=== PATIENT | female | born 1975 | race Caucasian/White ===

== ENCOUNTER 2024-02-15 15:34 | Observation (INO) | payer OTHER, SELFPAY ==
[2024-02-15 15:41] VITALS: BP 122/89; PULSE 112; TEMP 36.8; O2SAT 97; BMI 38.0
--- NOTE | 2024-02-15 15:54 | CT_ITS ---
The [address] [address] Patient Name: JASVIR KEE MRN: [id number] date: 1975 Sex: F Assigned Patient Location: ER Current Patient Location: .[facility] Accession/Order Number: [id number] Exam Date: 02/15/2024 16:25 Report Date: 02/15/2024 17:21 At the request of: PATRICE WILKINSON Procedure: CT abdomen pelvis w con EXAM: CT scan of the abdomen and pelvis using 100 mL of IV iodinated contrast. Dose reduction technique used: Automated exposure control and/or adjustment of the mA and/or kV according to patient size and/or use of iterative reconstruction technique. REASON FOR EXAM: Right sided abdominal pain, rule out appendicitis COMPARISON: None FINDINGS: Enlarged appendix measuring up to 10 mm thickness with surrounding periappendiceal fat stranding. No periappendiceal fluid collections or extraluminal gas. Cholecystectomy. Hysterectomy. Diffuse hepatic steatosis. Posterior right hepatic high attenuation lesion measuring 1.7 x 1.5 cm. No free fluid in the abdomen or pelvis. No free intraperitoneal air. No dilated or thickened loops of small bowel or colon. No hydronephrosis or obstructing renal or ureteral calculi. Liver, pancreas, spleen, bilateral kidneys, and bilateral adrenal glands are otherwise unremarkable. No lymphadenopathy in the abdomen or pelvis. Remainder unremarkable. CT/CT abdomen pelvis w con IMPRESSION: 1. Acute appendicitis. 2. Diffuse hepatic steatosis. 3. Indeterminate posterior right hepatic lesion. Consider with follow-up evaluation with ultrasound. Electronically authenticated by: CAITLIN MIGUEL Date: 02/15/2024 17:21
--- NOTE | 2024-02-15 16:04 | ED.ABDPAIN1 ---
HPI - Abdominal Pain General Chief Complaint: Abdominal Pain Stated Complaint: LOWER R SIDE FLANK PAIN Time Seen by Provider: 02/15/24 15:38 Source: patient Mode of arrival: walk-in Limitations: no limitations History of Present Illness HPI narrative: 48-year-old female presents to the emergency department for a chief complaint of abdominal pain. Its on the right side towards the lower part of the abdomen and she is worried about appendicitis; she was sent here by her PCP from their office. It started this morning and it has been progressive throughout the day. No trauma or fever. No constipation or diarrhea. She has had a cholecystectomy. Related Data Allergies Allergy/AdvReac Type Severity Reaction Status Date / Time sulfamethoxazole (From AdvReac Intermediate Unknown Verified 02/15/24 15:41 Bactrim) trimethoprim (From Bactrim) AdvReac Intermediate Unknown Verified 02/15/24 15:41 Review of Systems ROS Narrative A ten point review of systems is negative except as noted above. PFSH PFSH Social History Little interest or pleasure in doing things: not at all Feeling down, depressed, or hopeless: not at all Exam Narrative Exam Narrative: Nurses note and vital signs reviewed and patient is not hypoxic. General: The patient appears well and in no apparent distress. Patient is resting comfortably on cart. Skin: Warm, dry, no pallor noted. There is no rash noted. Head: Normocephalic, atraumatic Eye: Normal conjunctiva, no drainage Ears, Nose, Mouth, and Throat: oral mucosa is moist. Nares patent. Cardiovascular: Regular Rate and Rhythm Respiratory: Patient is in no distress, no accessory muscle use, lungs are clear to auscultation, no wheezing, rales or rhonchi Back: non-tender GI: Tenderness present on her abdomen just superior and lateral to the McBurney's point. There is no mass or guarding or rebound Musculoskeletal: The patient has no evidence of calf tenderness, no pitting edema, symmetrical pulses noted bilaterally Neurological: A&O, normal speech Psychiatric: Cooperative Constitutional Vital Signs, click to edit/add: Last Vital Signs Temp 98.2 F 02/15/24 15:41 Pulse 112 H 02/15/24 15:41 Resp 18 02/15/24 15:41 BP 122/89 02/15/24 15:41 Pulse Ox 97 02/15/24 15:41 O2 Del Method Room Air 02/15/24 15:41 Course Vital Signs Vital signs: Vital Signs Temperature 98.2 F 02/15/24 15:41 Pulse Rate 112 H 02/15/24 15:41 Respiratory Rate 18 02/15/24 15:41 Blood Pressure 122/89 02/15/24 15:41 Pulse Oximetry 97 02/15/24 15:41 Oxygen Delivery Method Room Air 02/15/24 15:41 Temperature 98.2 F 02/15/24 15:41 Pulse Rate 112 H 02/15/24 15:41 Respiratory Rate 18 02/15/24 15:41 Blood Pressure 122/89 02/15/24 15:41 Pulse Oximetry 97 02/15/24 15:41 Oxygen Delivery Method Room Air 02/15/24 15:41 MDM - Abdominal Pain MDM Narrative Medical decision making narrative: Acute appendicitis is identified. I discussed the case with Dr. Conroy and the patient was given option of admission to the hospital here with surgery in the morning versus transfer to another facility. She elects to be admitted here to have surgery tomorrow. She is stable and there is no evidence of perforation or phlebolith or abscess. She was given IV Zosyn and is being admitted to the hospitalist. Treatment diagnosis and disposition were discussed with the patient. Differential Diagnosis Differential diagnosis: Likely abdominal pain, acute appendicitis, constipation and gastroenteritis Lab Data Attestation: I reviewed the patient's lab results. Labs: Lab Results 02/15/24 02/15/24 Range/Units 15:52 17:10 WBC 13.8 H (4.0-11.0) 10^3/uL RBC 5.06 (4.20-5.40) 10^6/uL Hgb 14.9 (12.0-16.0) g/dL Hct 44.2 (36.0-48.0) % MCV 87.4 (81.0-99.0) fL MCH 29.4 (26.7-34.0) pg MCHC 33.7 (29.9-35.2) g/dL RDW 13.7 (11.0-15.0) % Plt Count 438 (150-450) 10^3/uL MPV 9.3 L (9.5-13.5) fL Neut % (Auto) 60.5 (43.0-75.0) % Lymph % (Auto) 30.4 (20.5-60.0) % [place] % (Auto) 6.1 (1.7-12.0) % Eos % (Auto) 1.9 (0.9-7.0) % Baso % (Auto) 0.7 (0.2-2.0) % Neut # (Auto) 8.4 H (1.4-6.5) 10^3/uL Lymph # (Auto) 4.2 H (1.2-3.8) 10^3/uL [place] # (Auto) 0.9 H (0.3-0.8) 10^3/uL Eos # (Auto) 0.3 (0.0-0.7) 10^3/uL Baso # (Auto) 0.1 (0.0-0.1) 10^3/uL Abs Immat Gran (auto) 0.06 H (0.00-0.03) 10^3/uL Imm/Tot Granulo (auto) 0.4 (0.0-0.5) % Sodium 139 (136-145) mmol/L Potassium 3.8 (3.5-5.1) mmol/L Chloride 100 (98-107) mmol/L Carbon Dioxide 25.4 (21.0-32.0) mmol/L Anion Gap 17.4 BUN 14.0 (7.0-18.0) mg/dL Creatinine 0.84 (0.55-1.02) mg/dL Est GFR ( Amer) >60 (>=60 mL/min/1.73m^2) Est GFR (Non-Af Amer) >60 (>=60 mL/min/1.73m^2) BUN/Creatinine Ratio 16.7 Glucose 97 (74-106) mg/dL Calcium 9.9 (8.5-10.1) mg/dL Urine Color Lt. yellow (YELLOW) Urine Clarity Clear (CLEAR) Urine pH 5.5 (5.0-9.0) Ur Specific [place] <=1.005 A (1.005-1.025) Urine Protein Negative (NEG/TRACE) mg/dL Urine Glucose (UA) Negative (NEGATIVE) mg/dL Urine Ketones Negative (NEGATIVE) mg/dL Urine Occult Blood Negative (NEGATIVE) Urine Nitrite Negative (NEGATIVE) Urine Bilirubin Negative (NEGATIVE) Urine Urobilinogen 0.2 (0.2-1.0) EU/dL Ur Leukocyte Esterase Negative (NEGATIVE) Imaging Data CT scan - abdomen: Radiologist's impression: ITS Impressions Abdomen/Pelvis CT 02/15/24 15:54 IMPRESSION: 1. Acute appendicitis. 2. Diffuse hepatic steatosis. 3. Indeterminate posterior right hepatic lesion. Consider with follow-up evaluation with ultrasound. Electronically authenticated by: CAITLIN MIGUEL Date: 02/15/2024 17:21 Discharge Plan Discharge Chief Complaint: Abdominal Pain Clinical Impression: Acute appendicitis Patient Disposition: Admitted As Inpatient Time of Disposition Decision: 17:41 Condition: Good
[2024-02-15 16:47] LABS: Basophils Absolute Auto 0.1 10^3/uL (0.0-0.1); Basophils Percent Auto 0.7 % (0.2-2.0); Eosinophils Absolute Auto 0.3 10^3/uL (0.0-0.7); Eosinophils Percent Auto 1.9 % (0.9-7.0); Hematocrit 44.2 % (36.0-48.0); Hemoglobin 14.9 g/dL (12.0-16.0); Immature Granulocytes Abs Auto 0.06 10^3/uL (0.00-0.03); Immature Granulocytes Pct Auto 0.4 % (0.0-0.5); Lymphocytes Absolute Auto 4.2 10^3/uL (1.2-3.8); Lymphocytes Percent Auto 30.4 % (20.5-60.0); Mean Corpuscular HGB Conc 33.7 g/dL (29.9-35.2); Mean Corpuscular Hemoglobin 29.4 pg (26.7-34.0); Mean Corpuscular Volume 87.4 fL (81.0-99.0); Mean Platelet Volume 9.3 fL (9.5-13.5); Monocytes Absolute Auto 0.9 10^3/uL (0.3-0.8); Monocytes Percent Auto 6.1 % (1.7-12.0); Neutrophils Absolute Auto 8.4 10^3/uL (1.4-6.5); Neutrophils Percent Auto 60.5 % (43.0-75.0); Platelet Count 438 10^3/uL (150-450); Red Blood Count 5.06 10^6/uL (4.20-5.40); Red Cell Distribution Width 13.7 % (11.0-15.0); White Blood Count 13.8 10^3/uL (4.0-11.0)
[2024-02-15 16:56] LABS: Anion Gap 17.4; BUN Creatinine Ratio 16.7; Calcium 9.9 mg/dL (8.5-10.1); Carbon Dioxide 25.4 mmol/L (21.0-32.0); Chloride 100 mmol/L (98-107); Estimated GFR (African America >60 (>=60 mL/min/1.73m^2); Estimated GFR (Non-African Ame >60 (>=60 mL/min/1.73m^2); Glucose 97 mg/dL (74-106); Potassium 3.8 mmol/L (3.5-5.1); Sodium 139 mmol/L (136-145)
[2024-02-15 17:40] LABS: Bilirubin Urine NEGATIVE (NEGATIVE); Blood Urine NEGATIVE (NEGATIVE); Clarity Urine CLEAR (CLEAR); Color Urine LT. YELLOW (YELLOW); Glucose Urine UA NEGATIVE (NEGATIVE); Ketones Urine NEGATIVE (NEGATIVE); Leukocyte Esterase Urine NEGATIVE (NEGATIVE); Nitrite Urine NEGATIVE (NEGATIVE); Protein Urine NEGATIVE (NEG/TRACE); Specific Gravity Urine <=1.005 (1.005-1.025); Urobilinogen Urine 0.2 EU/dL (0.2-1.0); pH Urine 5.5 (5.0-9.0)
[2024-02-15 17:50] LABS: Bacteria Urine TRACE #/HPF (NONE SEEN); Cast Seen? NONE SEEN #/LPF (NONE SEEN); Crystals Seen? None Seen #/HPF (None Seen); Mucus Urine TRACE (NONE SEEN); RBC Urine NONE SEEN #/HPF (0-2); Squamous Epithelial Cell Urine FEW #/LPF (NONE/RARE); WBC Urine NONE SEEN #/HPF (NONE SEEN)
[2024-02-15 17:51] LABS: Urine Culture Indicated NO
[2024-02-15] MEDS: PIPERACILLIN SODIUM/TAZOBACTAM 3.375 GM in 0.9 % SODIUM CHLORIDE 50 ML IV (18:00)
[2024-02-15 19:09] VITALS: BP 120/76; PULSE 102; O2SAT 98
[2024-02-15 19:19] VITALS: BP 134/87; PULSE 99; TEMP 36.6; O2SAT 93; BMI 38.4
[2024-02-15] MEDS: 0.9 % SODIUM CHLORIDE 1,000 ML 125 ML IV (22:41)
[2024-02-15] MEDS: ACETAMINOPHEN 500 MG TABLET 1000 MG PO (22:41)
[2024-02-16] VITALS (15 sets, daily range): BP systolic 115–137; BP diastolic 69–92; PULSE 67–99; TEMP 36.3–37.1; O2SAT 88–95; BMI 38.4
[2024-02-16] MEDS: PIPERACILLIN SODIUM/TAZOBACTAM 3.375 GM in 0.9 % SODIUM CHLORIDE 50 ML IV ×2 (01:56→09:48)
[2024-02-16 06:19] LABS: Alanine Aminotransferase 50 U/L (14-59); Albumin Globulin Ratio 0.9; Albumin Level 3.5 g/dL (3.4-5.0); Alkaline Phosphatase 82 U/L (46-116); Anion Gap 12.5; Aspartate Amino Transferase 19 U/L (15-37); BUN Creatinine Ratio 12.1; Bilirubin Total 0.8 mg/dL (0.2-1.0); Calcium 9.2 mg/dL (8.5-10.1); Carbon Dioxide 29.3 mmol/L (21.0-32.0); Chloride 105 mmol/L (98-107); Estimated GFR (African America >60 (>=60 mL/min/1.73m^2); Estimated GFR (Non-African Ame >60 (>=60 mL/min/1.73m^2); Globulin 3.7 g/dL; Glucose 109 mg/dL (74-106); Magnesium 1.9 mg/dL (1.8-2.4); Potassium 3.8 mmol/L (3.5-5.1); Sodium 143 mmol/L (136-145); Total Protein 7.2 g/dL (6.4-8.2)
[2024-02-16] MEDS: ACETAMINOPHEN 500 MG TABLET 1000 MG PO ×2 (07:55→15:24)
--- NOTE | 2024-02-16 09:24 | PM.GSCN ---
History of Present Illness Consult details Narrative: 48 yo F with RLQ pain and nausea. Pain onset last 24hrs. She has not had pain like this before. Denies any recent diarrhea or constipation. Prior lap cholecystectomy and hysterectomy. Discussed surgery and its risks, patient agreed and opted for surgery. Consent signed, RN witnessed. questions answered. Review of Systems ROS Status of ROS 10 or more systems reviewed and unremarkable except as noted in history and below PFSH PFSH Surgical History (Updated 02/15/24 @ 20:44 by Heavenly Pool RN) Hx of cholecystectomy ?Z90.49 - Acquired absence of other specified parts of digestive tract (ICD-10) H/O: hysterectomy ?Z90.710 - Acquired absence of both cervix and uterus (ICD-10) Family History (Updated 02/15/24 @ 19:35 by Heavenly Pool RN) Father Family history of hypertension Social History (Updated 02/15/24 @ 19:36 by Heavenly Pool RN) Within the past year, how often did you have a drink containing alcohol: monthly or less Within the past year, how many standard drinks containing alcohol did you have on a typical day: 1 or 2 Within the past year, how often did you have six or more drinks on one occasion: never Total score: 0 Score interpretation: A score less than 3 is consistent with normal alcohol consumption. Smoking status: Never smoker Non-prescribed substance use: denies use Previous occupational history: office Known occupational exposures/hazards: No Highest level of school completed/degree received: Master's degree Are you now , , , , never or living with a partner: In a typical week, how many times do you talk on the telephone with family, friends, or neighbors: twice per week How often do you get together with friends or relatives: twice per week How often do you attend roman catholic or sikhism services: never Do you belong to any clubs or organizations such as roman catholic groups unions, fraternal or athletic groups, or school groups: no Total score: 2 Score interpretation: A score of greater than or equal to 2 indicates the lowest level of social isolation. Little interest or pleasure in doing things: not at all Feeling down, depressed, or hopeless: not at all Feel stressed/tense/nervous/anxious/difficulty sleeping: not at all Do you think of yourself as: straight/heterosexual Gender Identity: female Meds Home Medications and Allergies Home Medications ?Medication ?Instructions ?Recorded ?Confirmed ?Type No Known Home Medications 02/15/24 02/15/24 History Allergies Allergy/AdvReac Type Severity Reaction Status Date / Time sulfamethoxazole (From AdvReac Intermediate Unknown Verified 02/15/24 15:41 Bactrim) trimethoprim (From Bactrim) AdvReac Intermediate Unknown Verified 02/15/24 15:41 Exam Narrative Exam Narrative: General: awake, alert, no distress Head: normocephalic, atraumatic Neck: supple, no tracheal deviation Heart: RRR Lungs: equal chest rise and fall, non labored breathing Abdomen: soft, + RLQ tenderness, no rebound or guarding Extremities: no lesions, grossly normal Skin: intact, no cyanosis Psychological: no apparent speech or mood disorder, appropriate for encounter Constitutional Vital Signs, click to edit/add: Last Vital Signs Temp 98.7 F 02/16/24 07:50 Pulse 67 02/16/24 07:50 Resp 18 02/16/24 07:50 BP 134/86 02/16/24 07:50 Pulse Ox 93 L 02/16/24 07:50 O2 Del Method Room Air 02/16/24 07:50 Results Labs Labs: Abnormal lab results 02/15/24 02/15/24 02/16/24 Range/Units 15:52 17:10 05:34 WBC 13.8 H (4.0-11.0) 10^3/uL MPV 9.3 L (9.5-13.5) fL Neut # (Auto) 8.4 H (1.4-6.5) 10^3/uL Lymph # (Auto) 4.2 H (1.2-3.8) 10^3/uL [place] # (Auto) 0.9 H (0.3-0.8) 10^3/uL Abs Immat Gran (auto) 0.06 H (0.00-0.03) 10^3/uL Glucose 109 H (74-106) mg/dL Ur Specific [place] <=1.005 A (1.005-1.025) Ur Squamous Epith Cells Few A (NONE/RARE) #/LPF Urine Bacteria Trace A (NONE SEEN) #/HPF Urine Mucus Trace A (NONE SEEN) Diabetes panel 02/15/24 02/16/24 Range/Units 15:52 05:34 Sodium 139 143 (136-145) mmol/L Potassium 3.8 3.8 (3.5-5.1) mmol/L Chloride 100 105 (98-107) mmol/L Carbon Dioxide 25.4 29.3 (21.0-32.0) mmol/L BUN 14.0 11.0 (7.0-18.0) mg/dL Creatinine 0.84 0.91 (0.55-1.02) mg/dL Glucose 97 109 H (74-106) mg/dL Calcium 9.9 9.2 (8.5-10.1) mg/dL AST 19 (15-37) U/L ALT 50 (14-59) U/L Alkaline Phosphatase 82 (46-116) U/L Total Protein 7.2 (6.4-8.2) g/dL Albumin 3.5 (3.4-5.0) g/dL Calcium panel 02/15/24 02/16/24 Range/Units 15:52 05:34 Calcium 9.9 9.2 (8.5-10.1) mg/dL Albumin 3.5 (3.4-5.0) g/dL Pituitary panel 02/15/24 02/16/24 Range/Units 15:52 05:34 Sodium 139 143 (136-145) mmol/L Potassium 3.8 3.8 (3.5-5.1) mmol/L Chloride 100 105 (98-107) mmol/L Carbon Dioxide 25.4 29.3 (21.0-32.0) mmol/L BUN 14.0 11.0 (7.0-18.0) mg/dL Creatinine 0.84 0.91 (0.55-1.02) mg/dL Glucose 97 109 H (74-106) mg/dL Calcium 9.9 9.2 (8.5-10.1) mg/dL Adrenal panel 02/15/24 02/16/24 Range/Units 15:52 05:34 Sodium 139 143 (136-145) mmol/L Potassium 3.8 3.8 (3.5-5.1) mmol/L Chloride 100 105 (98-107) mmol/L Carbon Dioxide 25.4 29.3 (21.0-32.0) mmol/L BUN 14.0 11.0 (7.0-18.0) mg/dL Creatinine 0.84 0.91 (0.55-1.02) mg/dL Glucose 97 109 H (74-106) mg/dL Calcium 9.9 9.2 (8.5-10.1) mg/dL Total Bilirubin 0.8 (0.2-1.0) mg/dL AST 19 (15-37) U/L ALT 50 (14-59) U/L Alkaline Phosphatase 82 (46-116) U/L Total Protein 7.2 (6.4-8.2) g/dL Albumin 3.5 (3.4-5.0) g/dL All other labs normal. Imaging Abdomen CT scan report/results: report reviewed and image reviewed Assessment and Plan Assessment and Plan (1) Acute appendicitis: Plan 1. Plan for laparoscopic appendectomy, consent obtained RN witnessed 2. Cont IV abx, NPO 3. Post op recs to follow. If patient does well post op can plan on slow advancement of diet and discharge later in the day if tolerating PO intake
--- NOTE | 2024-02-16 09:31 | P.ON_ITS ---
Date of procedure: 02/16/24 Pre-op diagnosis: acute appendicitis Procedure: Procedure laparoscopic Appendectomy The patient was taken to Operating Room, identified as the correct patient and the procedure verified as Appendectomy. A Time Out was held and the above information confirmed. The patient was placed in the supine position and general anesthesia was induced, along with placement of EPC cuffs, and a Julian catheter. The abdomen was prepped and draped in a sterile fashion. One centimeter left of the umbil icus an incision was made and the peritoneal cavity was accessed using the optiview technique via a 5mm port. The pneumoperitoneum was then established to steady pressure of 15 mmHg. Upon entrance with camera, no bowel injury was noted.? An additional 5 mm cannula was then placed in the supra pubic region of the abdomen and a 12 mm port in the LLQ under direct vision. A careful evaluation of the entire abdomen was carried out. The patient was placed in Trendelenburg and left lateral rotation. The small intestines were retracted in the cephalad and left lateral direction away from the pelvis and right lower quadrant. The patient was found to have an enlarged and inflamed appendix that was extending into the pelvis with associated opaque fluid consistent with wound class 4. The appendix was carefully dissected. A window was made in the mesoappendix at the base of the appendix. A endo ligasure device was used to divide mesoappendix. The appendix was divided at its base using an endo-ANGELICA s tapler. Minimal to no appendiceal stump was left in place. There was some oozing at the staple line noted and this was controlled with direct pressure and very minimal coagulation. There was no evidence of leakage, bleeding or complication after this. Sponge was used to remove the abdominal opaque fluid.?The appendix was placed in an endocatch bag and removed via the 12mm port site. The appendice al stump was examined again and noted to be hemostatic. All sponge and instruments were removed. The 12mm port site was closed using 0 Vicryl at the level of the fascia using a suture passer technique. All trocars were removed under direct vision while evacuating the pneumoperitoneum. No bleeding was noted. The port skin sites were closed using 4-0 monocryl followed by skin glue. Instrument, sponge, and needle counts were correct at the conclusion of the case. Patient tolerated the procedure well without any complications.? Patient was extubated and was transferred to PACU in stable condition.? Anesthesia: PANTERA Surgeon: Frankie Conroy Estimated blood loss (mL): 11 Pathology: other (appendix ) Condition: stable Disposition: PACU
[2024-02-16] MEDS: BUPIVACAINE HCL 0.5% PF 50 MG/10 ML VIAL 20 ML INJ (10:46)
--- NOTE | 2024-02-16 11:07 | CM.NOTE ---
Rounds made with Dr. Staples pt is in OR.
[2024-02-16] MEDS: HYDROMORPHONE HCL 0.5 MG/0.5 ML SYRINGE IV (11:19)
--- NOTE | 2024-02-16 14:30 | P.HP_ITS ---
HPI H&P: HPI History of Present Illness Chief complaint: Appendicitis Narrative: HPI and Hospital Course: 48 y o f, with no known chronic medical problems presented to ED with RLQ pain and nausea x 1 day. Work up in ED revealed acute appendicitis. Patient was admitted for Lap Appendectomy, started on IV zosyn, IVF and made NPO. She went to OR today for Lap Appendectomy. She was seen post operatively. Her pain is well controlled. She is tolerating oral diet. D/w Surgery, stable for discharge. No ongoing medical needs for continued inpatient monitoring/observation. Opioid HPI Opioid Management Most Recent Pain and Opioid Data: Last Pain Scale 3 02/16/24 13:00 02/16/24 Last Pain Assessment 02/16/24 13:00 Last MAR Pain Assessment 02/16/24 11:19 Last ORT Total Score 0 02/15/24 19:28 02/15/24 Last ORT Risk Category Low Risk 02/15/24 19:28 02/15/24 Review of Systems ROS Status of ROS 10 or more systems reviewed and unremark able except as noted in history and below PFSH [facility] Medical History (Updated 02/16/24 @ 14:35 by Shaikh Jhoan MD) Obesity ?E66.9 - Obesity, unspecified (ICD-10) Surgical History (Updated 02/15/24 @ 20:44 by Heavenly Pool RN) Hx of cholecystectomy ?Z90.49 - Acquired absence of other specified parts of digestive tract (ICD- 10) H/O: hysterectomy ?Z90.710 - Acquired absence of both cervix and uterus (ICD-10) Family History (Updated 02/15/24 @ 19:35 by Heavenly Pool RN) Father Family history of hypertension Social History (Updated 02/15/24 @ 19:36 by Heavenly Pool RN) Within the past year, how often did you have a drink containing alcohol: monthly or less Within the past year, how many standard drinks containing alcohol did you have on a typical day: 1 or 2 Within the past year, how often did you have six or more drinks on one occasion: never Total score: 0 Score interpretation: A score less than 3 is consistent with normal alcohol consumption. Smoking status: Never smoker Non-prescribed substance use: denies use Previous occupational history: office Known occupational exposures/hazards: No Highest level of school completed/degree received: Master's degree Are you now , , , , never or living with a partner: In a typical week, how many times do you talk on the telephone with family, friends, or neighbors: twice per week How often do you get together with friends or relatives: twice per week How often do you attend uatsdin or religion services: never Do you belong to any clubs or organizations such as uatsdin groups unions, fraSykio or athletic groups, or school groups: no Total score: 2 Score interpretation: A score of greater than or equal to 2 indicates the lowest level of social isolation. Little interest or pleasure in doing things: not at all Feeling down, depressed, or hopeless: not at all Feel stressed/tense/nervous/anxious/difficulty sleeping: not at all Do you think of yourself as: straight/heterosexual Gender Identity: female Meds Home Medications and Allergies Home Medications ?Medication ?Instructions ?Recorded ?Confirmed ?Type cyclobenzaprine 10 mg tablet 10 mg PO TID muscle tightness #20 02/16/24 Rx tabs docusate sodium 100 mg capsule 100 mg PO BID 10 days #20 caps 02/16/24 Rx (Colace) ondansetron 4 mg disintegrating 4 mg PO Q8H 5 days #15 tabs 02/16/24 Rx tablet oxycodone-acetaminophen 5 mg-325 1 tab PO Q4H PRN abd pain 3 days 02/16/24 Rx mg tablet (Percocet) #10 tabs Allergies Allergy/AdvReac Type Severity Reaction Status Date / Time sulfamethoxazole (From AdvReac Intermediate Unknown Verified 02/15/24 15:41 Bactrim) trimethoprim (From Bactrim) AdvReac Intermediate Unknown Verified 02/15/24 15:41 Exam Constitutional Vital Signs, click to edit/add: Last Vital Signs Temp 97.7 F 02/16/24 12:00 Pulse 76 02/16/24 12:00 Resp 16 02/16/24 12:00 BP 116/77 02/16/24 12:00 Pulse Ox 91 L 02/16/24 12:13 O2 Del Method Nasal Cannula 02/16/24 12:13 O2 Flow Rate 3 02/16/24 12:13 Documenting provider has reviewed patient's vital signs: yes Common normals: no apparent distress and oriented x3 General appearance: cooperative Respiratory Common normals: normal respiratory effort and clear to auscultation bilaterally Effort & inspection: able to speak in complete sentences Auscultation: clear to auscultation bilaterally Cardio Common normals: regular rate, S1 normal heart sound and S2 normal heart sound Rate: regular rate Heart sounds: S1 normal and S2 normal GI Other: post op dressing Extremity Common normals: no clubbing, cyanosis or edema Neuro Common normals: oriented x3, moves all extremities and no focal motor deficits Psych Common normals: mental status grossly normal, denies hallucinations, denies homicidal ideation and denies suicidal ideation Results Labs Labs: Short CBC 02/15/24 Range/Units 15:52 WBC 13.8 H (4.0-11.0) 10^3/uL Hgb 14.9 (12.0-16.0) g/dL Hct 44.2 (36.0-48.0) % Plt Count 438 (150-450) 10^3/uL BMP 02/15/24 02/16/24 15:52 05:34 Sodium 139 143 Potassium 3.8 3.8 Chloride 100 105 Carbon Dioxide 25.4 29.3 BUN 14.0 11.0 Creatinine 0.84 0.91 Glucose 97 109 H Calcium 9.9 9.2 Liver Function 02/16/24 Range/Units 05:34 Total Bilirubin 0.8 (0.2-1.0) mg/dL AST 19 (15-37) U/L ALT 50 (14-59) U/L Alkaline Phosphatase 82 (46-116) U/L Albumin 3.5 (3.4-5.0) g/dL Urine 02/15/24 Range/Units 17:10 Urine Color Lt. yellow (YELLOW) Urine Clarity Clear (CLEAR) Urine pH 5.5 (5.0-9.0) Ur Specific [place] <=1.005 A (1.005-1.025) Urine Protein Negative (NEG/TRACE) mg/dL Urine Glucose (UA) Negative (NEGATIVE) mg/dL Assessment and Plan Assessment and Plan (1) Acute appendicitis: Assessment and Plan: s/p lap appendectomy. Pain well controlled. Tolerating PO diet. F/u with General surgery as outpatient. Qualifiers: Acute appendicitis type: with localized peritonitis Appendicitis gangrene presence: without gangrene Appendicitis perforation presence: without perforation Appendicitis abscess presence: without abscess Qualified Code(s): K35.30 - Acute appendicitis with localized peritonitis, without perforation or gangrene (2) Leukocytosis: Assessment and Plan: Due to appendicitis. s/p appendectomy. Qualifiers: Leukocytosis type: leukemoid reaction Qualified Code(s): D72.823 - Leukemoid reaction (3) Postoperative hypoxemia: Assessment and Plan: Post op hypoxia, was on O2 Supplementation. Weaned off. Recommended breathing exercises, to avoid atelectasis and pulm complications. (4) Obesity: Assessment and Plan: Patient will benefit from weight loss. Her BMI is less than 40 so she would not qualify for Bariatric surgery but she is a good candidate for GLP1 agonists. Qualifiers: Obesity type: due to excess calories Obesity classification: adult class 2 (BMI 35 - 39.9) Serious obesity comorbidity presence: without serious comorbidity Body mass index: BMI 38.0-38.9 Qualified Code(s): E66.812 - Obesity, class 2; E66.09 - Other obesity due to excess calories; Z68.38 - Body mass index [BMI] 38.0-38.9, adult Urinary Catheter Management Urinary Catheter Management Straight: Cath placed during this visit: no
--- NOTE | 2024-02-19 13:42 | CM.DCFOLLOWU ---
Person spoke with: patient How are you feeling?well How is your pain? still a lot of pain, called PCP office to extend pain meds, waiting to hear back Did you understand your discharge instructions?yes Do you have any questions about your discharge instructions?no Were you given any prescriptions at discharge? yes Were you able to get your prescriptions filled?yes Do you understand how to take your medications as ordered?yes Do you have any questions about your follow up appointment and do you plan to keep your follow up appointment? no questions, reviewed follow up Is there anything else that you would like to discuss? no Questions/Comments/Concerns/Other: none
== END 2024-02-16 16:51 | disposition home or self-care (01) ==
LOC: ER 17:42 → MS 19:18
PROVIDERS: Registered Nurse; Surgery; Admitting Provider Internal Medicine; Emergency Provider Emergency Medicine; PCP Family Medicine; Visit Provider Internal Medicine
PROC: (CPT 00840; principal; 2024-02-16 10:00)
DX: K35.30 Acute appendicitis with localized peritonitis, without perforation or gangrene (principal); R09.02 Hypoxemia; E66.09 Other obesity due to excess calories; Z68.38 Body mass index [BMI] 38.0-38.9, adult; Z90.49 Acquired absence of other specified parts of digestive tract
CPT/HCPCS: 00840; 44970; 36415; 74177; 80048; 80053; 81001; 83735; 85025; 88304; 94761; 96365; 96366; 99285; G0378; J0665; J1100; J1171; J1885; J2250; J2405; J2543; J2704; J3010; Q9967